=== PATIENT | male | born 1995 | race African-American/Black ===

== ENCOUNTER 2021-04-07 11:19 | Emergency (ER) | payer OTHER ==
[~2021-04-07] VITALS: Ht 170.2 cm; Wt 70.3 kg
[2021-04-07 11:29] VITALS: BP 109/67
== END 2021-04-07 12:27 | disposition home or self-care (01) ==
LOC: M.ERS 11:19
DX: Z20.822 Contact with and (suspected) exposure to COVID-19 (principal)